=== PATIENT | male | born 1970 | race Caucasian/White ===

== ENCOUNTER 2020-03-05 03:55 | Inpatient (IN) | payer SELFPAY ==
[2020-03-05] VITALS (23 sets, daily range): BP systolic 98–136; BP diastolic 51–79
[~2020-03-05] VITALS: Ht 177.8 cm; Wt 102.7 kg
[2020-03-05] MEDS ORDERED: aspirin 81mg tab.chew PO ONE (04:05)
[2020-03-05] MEDS: nitroGLYCERIN 0.4mg SUBLingual tab SL PRN ×3 (04:24→05:00)
[2020-03-05 04:35] LABS: BASOPHILS % (AUTO) 0.2 % (0-1); EOSINOPHILS % (AUTO) 0.5 % (0-6); HEMATOCRIT 45.7 % (42.0-52.0); HEMOGLOBIN 15.5 g/dl (14.0-17.9); LYMPHOCYTES # (AUTO) 1.7 X10'3 (1.1-4.8); LYMPHOCYTES % (AUTO) 19.7 % (21-51); MEAN CORPUSCULAR HEMOGLOBIN 30.2 PG (27.0-31.0); MEAN CORPUSCULAR HGB CONC 33.8 g/dL (33.0-36.5); MEAN CORPUSCULAR VOLUME 89.3 FL (78-98); MEAN PLATELET VOLUME 8.4 FL (7.4-10.4); MONOCYTES # (AUTO) 0.5 X10'3 (0-0.9); MONOCYTES % (AUTO) 5.6 % (2-12); NEUTROPHILS # (AUTO) 6.4 X10'3 (1.8-7.7); PLATELET COUNT 226 X10'3 (140-440); RED BLOOD COUNT 5.11 X10'6 (4.70-6.10); RED CELL DISTRIBUTION WIDTH 12.8 % (11.5-14.5); WHITE BLOOD COUNT 8.7 X10'3 (4.5-11.0)
[2020-03-05 04:38] LABS: ALANINE AMINOTRANSFERASE 34 U/L (12-78); ALBUMIN 3.8 G/DL (3.4-5.0); ALBUMIN/GLOBULIN RATIO 1.2 (1.1-1.5); ALKALINE PHOSPHATASE 88 IU/L (46-116); ANION GAP 7 (8-16); ASPARTATE AMINO TRANSFERASE 55 U/L (10-37); BILIRUBIN,TOTAL 0.4 MG/DL (0.1-1.0); BLOOD UREA NITROGEN 13 MG/DL (7-18); BUN/CREATININE RATIO 11.7 (5.4-32.0); CALCIUM 8.4 MG/DL (8.5-10.1); CHLORIDE 108 MMOL/L (99-107); CREATININE 1.11 MG/DL (0.60-1.10); GLUCOSE 121 MG/DL (70-104); POTASSIUM 3.5 MMOL/L (3.5-5.1); SODIUM 149 MMOL/L (135-145); TOTAL CARBON DIOXIDE 33.6 MMOL/L (24-32); eGFR 71 ML/MIN
[2020-03-05] MEDS ORDERED: heparin 25,000 UNIT/250ml bag 250 ML IV SCH ×2 (04:44→05:33)
[2020-03-05] MEDS ORDERED: heparin 10,000 units/1 ML INJ IV PRN ×2 (04:45→05:35)
[2020-03-05] MEDS ORDERED: ondansetron/PF 4mg/2ml inj IV ONE (04:45)
[2020-03-05] MEDS ORDERED: morphine 4 MG/ML inj SYRINge IV ONE (04:45)
[2020-03-05] MEDS ORDERED: heparin 10,000 units/1 ML INJ IV ONE ×3 (04:45→05:35)
[2020-03-05] MEDS ORDERED: tirofiban 5mg in NS 100mL 100 ML IV ONE (05:05)
[2020-03-05] MEDS ORDERED: tirofiban 5mg in NS 100mL 100 ML IV SCH (05:06)
[2020-03-05 05:23] LABS: PARTIAL THROMBOPLASTIN TIME 28 SECONDS (22-32)
[2020-03-05] MEDS ORDERED: ondansetron/PF 4mg/2ml inj IV PRN ×2 (05:35→21:10)
[2020-03-05] MEDS ORDERED: potassium Cl 20 mEq SR tablet PO PRN ×2 (05:35)
[2020-03-05] MEDS ORDERED: morphine 2 MG/ML inj. syringe IV PRN (05:35)
[2020-03-05] MEDS ORDERED: morphine 4 MG/ML inj SYRINge IV PRN (05:35)
[2020-03-05] MEDS ORDERED: acetaminophen 325mg tablet PO PRN ×2 (05:35)
[2020-03-05] MEDS ORDERED: potassium CL 10mEq/100ml bag 100 ML IV PRN ×2 (05:35)
[2020-03-05] MEDS: K, MAG and/or Phos replacement - Verify level? MC SCH ×2 (05:35→07:58)
[2020-03-05] MEDS ORDERED: magnesium hydroxide 30ml (MOM) UD suspension PO PRN (05:35)
[2020-03-05] MEDS ORDERED: PHEN35TA PO (05:53)
[2020-03-05] MEDS ORDERED: TADA20TA PO (05:53)
[2020-03-05] MEDS: tirofiban 5mg in NS 100mL 100 ML IV SCH ×4 (06:01→21:45)
[2020-03-05] MEDS: normal saline 1000ml 1,000 ML IV SCH ×2 (06:01→18:15)
[2020-03-05] MEDS: pantoprazole 40mg Tablet.DR PO SCH (06:34)
--- NOTE | 2020-03-05 08:12 | NUR ---
Patient in room ED 13. I have received report from She RN in the ER and had the opportunity to ask questions and assume patient care.
--- NOTE | 2020-03-05 09:40 | NUR ---
i called Dr Lynn around 09 regarding pt. he reported that he is no longer seeing pt. he was called by the neuroradiologist and gave orders for the heparin and aggrastat, but then asked them to send the pt to the ICU and consult the physics and astronomy professor offset second press operator today to take him to the label pinker. Dr Lynn did request that a Utox and etoh be done, and that dr Phan be called to speak with the physics and astronomy professor today who is dr Starr.
--- NOTE | 2020-03-05 10:09 | NUR ---
Problems reprioritized. Patient report given, questions answered & plan of care reviewed with Hansa SHEIKH.
--- NOTE | 2020-03-05 10:14 | NUR ---
Dr Phan was called 2x times but his phone is going straight to voicemail. we will continue to try to make contact.
--- NOTE | 2020-03-05 10:35 | NUR ---
Dr Phan present on unit. critical troponin was discussed. Dr Phan made aware of Dr Lynn reporting that he is no longer seeing the pt.
[2020-03-05] MEDS ORDERED: atorvastatin 20mg tablet PO SCH (10:45)
[2020-03-05 10:55] LABS: ETHANOL < 0.010 GM/DL (0.0-0.010)
[2020-03-05] MEDS ORDERED: methylPREDNISolone sod succ 125mg/2ml vial IV ONE ×2 (11:15→17:00)
[2020-03-05] MEDS: metoprolol tartrate 12.5mg (1/2 tablet) PO SCH ×2 (11:35→21:45)
[2020-03-05 11:55] LABS: CHOL/HDL RATIO 5.1 (0.00-4.99); CHOLESTEROL 185 MG/DL (0-200); HDL CHOLESTEROL 36 MG/DL (35-60); LDL CHOLESTEROL 128 MG/DL (50-100); TRIGLYCERIDES 103 MG/DL (20-135)
[2020-03-05] MEDS ORDERED: LIDOcaine 1% (10mg/ml)w/preservative injection 20ml MDV ONE (18:15)
[2020-03-05] MEDS ORDERED: fentaNYL/PF 50MCG/1 ML 2ML syringe ONE ×2 (18:15→20:14)
[2020-03-05] MEDS ORDERED: heparin 1,000unit/ml 10ml vial 10 ML ONE (18:15)
[2020-03-05] MEDS ORDERED: iohexol 350MG/ML 100ml bottle IV ONE ×2 (18:15→20:02)
[2020-03-05] MEDS ORDERED: midazolam 2 mg/2 ml injection ONE ×2 (18:15→19:48)
--- NOTE | 2020-03-05 19:20 | NUR ---
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 Patient states that was notified by text that patient leaving for laborer livestock. Voided prior to transfer. RN from laborer livestock made aware of Solumedrol administrations for shellfish allergy.
[2020-03-05] MEDS ORDERED: nitroGLYCERIN-Tridil 50MG/D5W 250 ML IV ONE (19:44)
[2020-03-05] MEDS ORDERED: verapamil 2.5 mg/ml inj IV ONE (19:44)
[2020-03-05] MEDS ORDERED: ticagrelor 90mg tablet ONE (20:21)
[2020-03-05] MEDS ORDERED: ticagrelor 90mg tablet PO SCH ×2 (20:54→21:09)
[2020-03-05] MEDS ORDERED: nitroGLYCERIN 0.4mg SUBLingual tab SL PRN (21:10)
[2020-03-05] MEDS ORDERED: proCHLORperazine 10 MG/2 ml inj IV PRN (21:10)
[2020-03-05] MEDS ORDERED: OXAZEpam 15mg capsule PO PRN (21:10)
[2020-03-06] VITALS (15 sets, daily range): BP systolic 90–127; BP diastolic 60–86
[2020-03-06] MEDS: tirofiban 5mg in NS 100mL 100 ML IV SCH (02:14)
[2020-03-06] MEDS: normal saline 1000ml 1,000 ML IV SCH (02:14)
[2020-03-06 05:34] LABS: BASOPHILS % (AUTO) 0.1 % (0-1); EOSINOPHILS % (AUTO) 0 % (0-6); HEMATOCRIT 43.8 % (42.0-52.0); HEMOGLOBIN 14.8 g/dl (14.0-17.9); LYMPHOCYTES # (AUTO) 1.1 X10'3 (1.1-4.8); LYMPHOCYTES % (AUTO) 10.7 % (21-51); MEAN CORPUSCULAR HEMOGLOBIN 30.7 PG (27.0-31.0); MEAN CORPUSCULAR HGB CONC 33.7 g/dL (33.0-36.5); MEAN CORPUSCULAR VOLUME 91.2 FL (78-98); MEAN PLATELET VOLUME 8.5 FL (7.4-10.4); MONOCYTES # (AUTO) 0.3 X10'3 (0-0.9); MONOCYTES % (AUTO) 2.9 % (2-12); NEUTROPHILS # (AUTO) 8.6 X10'3 (1.8-7.7); NEUTROPHILS % (AUTO) 86.3 % (42-75); PLATELET COUNT 240 X10'3 (140-440); RED CELL DISTRIBUTION WIDTH 12.7 % (11.5-14.5); WHITE BLOOD COUNT 9.9 X10'3 (4.5-11.0)
[2020-03-06 05:40] LABS: ALANINE AMINOTRANSFERASE 43 U/L (12-78); ALBUMIN 3.3 G/DL (3.4-5.0); ALBUMIN/GLOBULIN RATIO 1.1 (1.1-1.5); ALKALINE PHOSPHATASE 83 IU/L (46-116); ANION GAP 7 (8-16); ASPARTATE AMINO TRANSFERASE 105 U/L (10-37); BILIRUBIN,TOTAL 0.4 MG/DL (0.1-1.0); BLOOD UREA NITROGEN 12 MG/DL (7-18); BUN/CREATININE RATIO 11.1 (5.4-32.0); CALCIUM 8.6 MG/DL (8.5-10.1); CHLORIDE 107 MMOL/L (99-107); CHOL/HDL RATIO 4.5 (0.00-4.99); CHOLESTEROL 171 MG/DL (0-200); CREATININE 1.08 MG/DL (0.60-1.10); GLUCOSE 159 MG/DL (70-104); HDL CHOLESTEROL 38 MG/DL (35-60); LDL CHOLESTEROL 119 MG/DL (50-100); PHOSPHORUS 3.2 MG/DL (2.3-4.5); POTASSIUM 4.2 MMOL/L (3.5-5.1); SODIUM 142 MMOL/L (135-145); TOTAL PROTEIN 6.4 G/DL (6.4-8.2); TRIGLYCERIDES 101 MG/DL (20-135); eGFR 73 ML/MIN
[2020-03-06] MEDS ORDERED: atorvastatin 20mg tablet PO SCH (08:00)
[2020-03-06] MEDS ORDERED: ticagrelor 90mg tablet PO SCH (08:00)
[2020-03-06] MEDS ORDERED: aspirin 81mg tab.chew PO SCH (08:30)
[2020-03-06] MEDS: pantoprazole 40mg Tablet.DR PO SCH (08:34)
[2020-03-06] MEDS: metoprolol tartrate 12.5mg (1/2 tablet) PO SCH (08:35)
[2020-03-06] MEDS ORDERED: NITR0.4T51 SL (12:28)
[2020-03-06] MEDS ORDERED: ATOR20TA66 PO (12:28)
[2020-03-06] MEDS ORDERED: METO25TA6 PO (12:35)
== END 2020-03-06 16:25 | disposition home or self-care (01) | DRG 247 ==
LOC: ER 03:56 → ED HOLD 05:33 → ICU 2S 08:30
PROC: 4A023N7 Measurement of Cardiac Sampling and Pressure, Left Heart, Percutaneous Approach (ICD-10-PCS; principal; 2020-03-05)
PROC: 027035Z Dilation of Coronary Artery, One Artery with Two Drug-eluting Intraluminal Devices, Percutaneous Approach (ICD-10-PCS; 2020-03-05)
PROC: B2111ZZ Fluoroscopy of Multiple Coronary Arteries using Low Osmolar Contrast (ICD-10-PCS; 2020-03-05)
PROC: B2151ZZ Fluoroscopy of Left Heart using Low Osmolar Contrast (ICD-10-PCS; 2020-03-05)
DX: I21.4 Non-ST elevation (NSTEMI) myocardial infarction (principal); N17.9 Acute kidney failure, unspecified; E66.9 Obesity, unspecified; Z91.013 Allergy to seafood; Z88.0 Allergy status to penicillin; Z82.49 Family history of ischemic heart disease and other diseases of the circulatory system; Z87.891 Personal history of nicotine dependence
CPT/HCPCS: 93306; 93458; 96365; 96375; 96376; 99291; C9600; C9601; 36415; 71045; 80053; 80061; 80320; 83735; 83880; 84100; 84484; 85025; 85610; 85730; 87081; 93005; 99152; 99153; A4620; A5120; A6258; C1725; C1751; C1769; C1874; C1894; G0378; J1644; J2001; J2250; J2270; J2405; J2930; J3010; J3246; J3490; J7030; Q9967